=== PATIENT | female | born 1980 | race Caucasian/White ===

== ENCOUNTER 2018-11-09 10:55 | Observation (INO) ==
[2018-11-09] MEDS ORDERED: Nitroglycerin 0.4 MG TAB.SUBL SL PRN ×2 (11:01→15:27)
[2018-11-09] MEDS ORDERED: Aspirin 81 MG TAB.CHEW PO ONE (11:01)
[2018-11-09] MEDS ORDERED: 0.9 % Sodium Chloride 500 ML IVC ONE (11:01)
[2018-11-09] MEDS ORDERED: GI Cocktail 40 ML EACH PO ONE (11:01)
[2018-11-09] MEDS ORDERED: Ondansetron 4 MG/2 ML VIAL IVP ONE (11:01)
--- NOTE | 2018-11-09 11:03 | Emergency Department Note ---
Disposition Clinical Impression: Atypical chest pain Disposition: Admitted As Inpatient Referrals: NONE,PCP [Non-Partnered Physician] - Forms: ED Satisfaction Letter Chest Pain HPI - General Chief Complaint: ED Chest Pain Stated Complaint: Chest pain Time Seen by Provider: 11/09/18 11:01 Source: patient Mode of arrival: private vehicle Limitations: no limitations Vital Signs Reviewed: Yes Nursing Notes Reviewed: Yes - History of Present Illness HPI Narrative: Patient relates she has had some mid epigastric and low chest pain since about 9 PM last night. She states this has made it difficult for her to sleep. The pain persisted today and she went to work. While work she had more discomfort and states she felt sweaty lectures could not pass out. This prompted her to come in for evaluation. She notes that she has pains like this occasionally but usually in the left chest and balance are epigastric in her right side. She cannot identify anything that makes it better or worse and relates it is an 8 on a scale of 1-10 rest. Pain is described as tight to sharp in character and will radiate towards the left shoulder. She denies radiation to the back, jaw or arms. She states that she just had slight nausea and slight shortness of breath. She denies cough, congestion, fevers or chills. She denies any change of activity, strain or lifting. She denies any lower extremity swelling, immobilization or injury. She is followed by cardiology at [facility] with the last visit being a year ago. She states she has not had any testing through cardiology at [place]. She did have a previous CT coronary arteriogram performed a year ago in [place] which was reported to her as being normal. She denies any personal history of PE or DVT. She denies previous known heart disease or dysrhythmia. She is a smoker. She does not have history of hypertension, cholesterol issues, diabetes, morbid obesity or primary family history of heart disease. She states she has a grandmother who had heart disease. She does note some anxiety. With the epigastric discomfort she denies routine use of her nonsteroidals or alcohol use. She is noted to be on ibu profen 800 mg tablets as needed. Pt complaint: chest pain Onset (ago): hour(s) (14) Duration: constant, gradually worsening Onset: during rest Pain Location: substernal, epigastric Severity: moderate Severity scale (1-10): 8 Quality: tightness, sharp Pain Radiation: LUE (Shoulder) Improves with: nothing Worsens with: nothing Associated symptoms: Reports: nausea, diaphoresis, dyspnea. Denies: vomiting, syncope (Near syncope), palpitations, fever, cough, leg swelling Treatments prior to arrival chest pain: none - Related Data Home Medications Medication Instructions Recorded Confirmed clonazePAM [Clonazepam] 0.5 - 1 mg PO DAILY PRN 02/11/18 11/09/18 Benzoyl Peroxide 142 gm TP HS 09/30/18 11/09/18 Ibuprofen [Ibu] 800 mg PO TID PRN 09/30/18 11/09/18 Allergies Allergy/AdvReac Type Severity Reaction Status Date / Time prednisone Allergy See Verified 02/11/18 20:13 Comments All systems ED: reviewed and negative except as stated. Chest Pain PMH - Past Medical History Medical history: Reports: arthritis, fibromyalgia, migraine, renal disease. 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 INSPECTION history: Reports: endometriosis, ectopic , bilateral tubal ligation - Social History Smoking Status: Current every day smoker Alcohol use: Reports: none Drug use: Reports: marijuana (weekly) Physical Exam - General Limitations: no limitations General appearance: alert, in no apparent distress, anxious - Head Head exam: atraumatic, normocephalic, normal inspection - Eye Eye exam: Present: normal appearance, PERRL, EOMI - ENT ENT exam: normal exam, normal oropharynx, mucous membranes moist - Neck Neck exam: Present: normal inspection, full ROM, trachea midline - Chest Chest inspection: Present: normal inspection, symmetric chest wall rise. Absent: tenderness - Respiratory Respiratory exam: Present: normal lung sounds bilaterally. Absent: respiratory distress, wheezes, prolonged expiratory phase - Cardiovascular Cardiovascular exam: Present: regular rate, normal rhythm, normal heart sounds. Absent: tachycardia - Abdominal Exam Abdominal exam: Present: soft, normal bowel sounds. Absent: distention, guarding, rebound, rigidity Abdominal tenderness: Present: epigastrium, mild - Extremities Exam Extremities exam: Present: normal inspection, full ROM, normal capillary refill. Absent: tenderness, pedal edema, calf tenderness - Expanded Lower Extremity Exam Neurovascular/Tendon exam: Present: normal capillary refill. Absent: motor deficit, sensory deficit, tendon deficit Gait: observed and normal - Back Exam Back exam: Present: normal inspection, full ROM. Absent: tenderness - Neurological Exam Neurological exam: Present: alert, oriented X3 - Psychiatric Psychiatric exam: Present: normal affect, anxious - Skin Skin exam: Present: warm, dry, intact, normal color. Absent: diaphoresis, pallor Course Course Narrative: With return of laboratory testing, the patient does have a slightly elevated d- dimer. CT PE study has been ordered. 1225: My initial review of the CT PE studies that is negative. She has had significant relief with nitroglycerin and nitroglycerin paste has been applied prior to the CT PE study. Upon return of radiology reading, I will discuss care with Dr. Youngblood with regard to serial troponins at this facility for transfer to [facility]. 1251: Care has been discussed with Dr. Youngblood. He recommended consultation with [facility] cardiology to see if they would be okay with the patient staying here. 1323: I have spoken to Dr. Yunior Morales of cardiology. He relates that he is agreeable to the patient staying at this facility to trend troponins. This is been relayed back to Dr. Youngblood who is given verbal orders for the patient's observation. Vital Signs O2 Sat by Pulse Oximetry 97 11/09/18 10:56 Temperature 98.2 F 11/09/18 10:57 Pulse Rate 74 11/09/18 13:00 Respiratory Rate 18 11/09/18 13:00 Blood Pressure 109/83 11/09/18 13:00 O2 Sat by Pulse Oximetry 99 11/09/18 13:00 Oxygen Delivery Oxygen Delivery Nasal Cannula Chest Pain - Differential Diagnosis Likely: atypical chest pain, costalchondritis, chest pain - Medical Records Medical records reviewed: Yes I reviewed the patient's medical records. Echocardiogram Name: Nevaeh Mathur Date of Study: 07/17/2017 Indications: Chest pain History History of Smoking Years 18 Packs 1 EV/EV echocardiogram Impressions: LVEF 60%. Normal LV chamber size, wall thickness and function. Normal left ventricular diastolic function. Normal right ventricular structure and function. No evidence of pulmonary hypertension. No significant valvular dysfunction. Left Ventricular Wall Motion: Rest Echo Findings All wall segments showed normal motion. - Lab Data Lab results reviewed: Yes I reviewed the patient's lab results. Result diagrams: 11/09/18 11:13 11/09/18 11:13 Lab Results 11/09/18 11/09/18 11/09/18 Range/Units 11:13 11:13 11:13 WBC 11.9 H (4.3-11.1) K/mcL RBC 4.67 (3.82-4.97) M/mcL Hgb 13.4 (11.5-15.4) g/dL Hct 40.5 (35.3-44.9) % MCV 86.7 (83.0-100.0) fL MCH 28.7 (28.0-33.3) pg MCHC 33.1 (31.6-35.5) g/dL RDW 13.6 (11.5-14.5) % Plt Count 285 (140-400) K/mcL MPV 10.2 (9.4-12.4) fL Immature Gran % 0.5 (0-4) % Seg Neutrophils % 70.3 % Lymphocytes % 22.6 % Monocytes % 5.6 % Eosinophils % 0.7 % Basophils % 0.3 % Neutrophils # 8.4 (1.6-8.9) K/mcL Lymphocytes # 2.7 (0.6-4.6) K/mcL Monocytes # 0.7 (0.0-1.3) K/mcL Eosinophils # 0.1 (0.0-0.6) K/mcL Basophils # 0.0 (0.0-0.2) K/mcL PT 10.4 (9.4-12.1) Seconds INR 0.9 APTT 33.6 (26.0-36.0) Seconds D-Dimer 531 H (0-500) ng/mLFEU Sodium 136 (136-145) mEq/L Potassium 3.8 (3.5-5.1) mEq/L Chloride 105 (98-107) mEq/L Carbon Dioxide 25 (23-29) mEq/L BUN 10 (6-20) mg/dL Creatinine 0.72 (0.60-1.20) mg/dL Est GFR ( Amer) > 60 (> 60) Est GFR (Non-Af Amer) > 60 (> 60) BUN/Creatinine Ratio 14 (6-26) Glucose 96 (70-105) mg/dL Calculated Osmolality 281 (280-300) Calcium 9.3 (8.6-10.3) mg/dL Troponin I < 0.03 (< 0.04) ng/mL - Radiology Data Radiology results reviewed: Yes I reviewed the patient's radiology results. Single view chest x-ray is performed. This does not demonstrate evidence for infiltrate, effusion, pneumothorax, foreign body or heart failure. The cardiac silhouette is normal. I do not see abnormality to the osseous structures of the chest. This is on my interpretation. Impressions Chest X-Ray 11/09/18 11:01 IMPRESSION: No acute cardiopulmonary process identified. D/ / Remi Ulloa MD / Remi Ulloa MD Interpreting Provider: Remi Ulloa MD Chest CTA 11/09/18 11:48 IMPRESSION: 1. No pulmonary embolism. 2. The lungs are clear with no acute finding in the chest. 3. 8 mm left thyroid nodule noted incidentally. No follow-up imaging is recommended. RECOMMENDATIONS: Subcentimeter incidental thyroid nodule. No follow-up imaging is recommended. Reference: J Am Tiffanie Radiol. 2014;12(2): 143-50 D/ / Juan Do MD / Juan Do MD Interpreting Provider: Juan Do MD - EKG Data EKG attestation: Yes I reviewed and interpreted this EKG. EKG shows normal: sinus rhythm, axis, intervals, QRS complexes, ST-T waves Rate: normal Interpretation: no acute changes, normal EKG Heart Score - Score History: Moderately Suspicious EKG: Normal Age: Less than 45 Risk Factors: 1-2 risk factors Troponin: Less than normal limit HEART Score Total: 2
[2018-11-09 11:20] LABS: Basophils % 0.3 %; Eosinophils # 0.1 K/mcL (0.0-0.6); Eosinophils % 0.7 %; Hematocrit 40.5 % (35.3-44.9); Hemoglobin 13.4 g/dL (11.5-15.4); Immature Granulocytes % 0.5 % (0-4); Lymphocytes # 2.7 K/mcL (0.6-4.6); Lymphocytes % 22.6 %; Mean Corpuscular HGB Conc 33.1 g/dL (31.6-35.5); Mean Corpuscular Hemoglobin 28.7 pg (28.0-33.3); Mean Corpuscular Volume 86.7 fL (83.0-100.0); Mean Platelet Volume 10.2 fL (9.4-12.4); Monocytes # 0.7 K/mcL (0.0-1.3); Monocytes % 5.6 %; Neutrophils # 8.4 K/mcL (1.6-8.9); Platelet Count 285 K/mcL (140-400); Red Blood Count 4.67 M/mcL (3.82-4.97); Red Cell Distribution Width 13.6 % (11.5-14.5); Segmented Neutrophils % 70.3 %
[2018-11-09 11:29] LABS: INR 0.9; Prothrombin Time 10.4 Seconds (9.4-12.1)
[2018-11-09 11:32] LABS: Activated Partial Thrombo Time 33.6 Seconds (26.0-36.0)
[2018-11-09 11:39] LABS: BUN/Creatinine Ratio 14 (6-26); Blood Urea Nitrogen 10 mg/dL (6-20); Calcium 9.3 mg/dL (8.6-10.3); Carbon Dioxide 25 mEq/L (23-29); Chloride 105 mEq/L (98-107); Glucose 96 mg/dL (70-105); Osmolality,Calculated 281 (280-300); Potassium 3.8 mEq/L (3.5-5.1); Sodium 136 mEq/L (136-145); eGFR For Non-African Americans > 60 (> 60)
[2018-11-09 11:40] LABS: Troponin I < 0.03 ng/mL (< 0.04)
[2018-11-09] MEDS ORDERED: Isovue-370 500 ML BOTTLE IVP ONE ×2 (11:48→15:27)
[2018-11-09] MEDS ORDERED: Acetaminophen 325 MG TABLET PO ONE (11:50)
[2018-11-09] MEDS ORDERED: Nitroglycerin 1 INCH/GM PACKET TP ONE (11:50)
[2018-11-09] MEDS ORDERED: Mag Hydrox/Al Hydrox/Simeth 30 ML UDC PO PRN (15:27)
[2018-11-09] MEDS ORDERED: MOM Conc 10 ML UD.LIQ PO PRN (15:27)
[2018-11-09] MEDS ORDERED: Naloxone 0.4 MG/ML INJ IVP PRN (15:27)
[2018-11-09] MEDS: 0.9 % Sodium Chloride 1,000 ML IVC SCH (17:08)
[2018-11-09] MEDS ORDERED: Acetaminophen 325 MG TABLET PO PRN (17:25)
[2018-11-09] MEDS: clonazePAM 0.5 MG TABLET PO PRN (18:32)
[2018-11-10] MEDS: Ondansetron 4 MG/2 ML VIAL IVP PRN ×2 (00:30→08:32)
[2018-11-10] MEDS: 0.9 % Sodium Chloride 1,000 ML IVC SCH (00:30)
[2018-11-10] MEDS: clonazePAM 0.5 MG TABLET PO PRN (04:21)
[2018-11-10] MEDS ORDERED: Nicotine 21 MG PATCH.TD24 TD SCH (09:00)
--- NOTE | 2018-11-10 10:23 | Internal Med History&Physical ---
Date of Encounter: 11/10/18 Time of Encounter: 09:50 Assessment and Plan (1) Chest pain Current visit: Yes Status: Acute Doubt myocardial ischemia from history and physical. Suspect chest wall origin. Repeat cardiac enzymes were ordered through emergency room. Qualifiers: Chest pain type: precordial pain Qualified Code(s): R07.2 - Precordial pain Internal Medicine - H&P: HPI Chief complaint: Chest discomfort Admitted From: Emergency Dept Plans for Post Hospital Care: Home History of present illness: Ms. Mathur is a 38 year old female who came to emergency room complaining of chest discomfort described is a sharp stabbing pain onset approximately 9 PM the evening of November 08 while at leisure. She did not sleep well during the night. She did not take medication to relieve the pain. While at work the following morning she developed worsening chest discomfort with nausea dyspnea and dizziness. She called her seeing eye dog trainer who recommended she come to emergency room. She was found to have elevated d-dimer in emergency room. Chest CTA showed no PE. She was admitted to [facility] floor for ongoing care needs. She reports multiple previous but less severe similar pains over the past few days. Pains have been present for over a year. CT coronary angiogram was pe rformed 2017 in [place] without abnormality per her report. She states she feels much improved now and stable for discharge home. Cardiovascular history is negative for hypertension MT heart failure angina DVT or pulmonary embolus. Past Med Surg Social Fam HX - Past Medical History Medical history: arthritis, fibromyalgia, migraine, renal disease Additional medical history: STATES HEART SKIPS AND CAN BE RAPID BUT DUE TO ANXIETY, Psychiatric history: anxiety - Past Surgical History Surgical History: , cholecystectomy, other Additional surgical history: TUBAL, TWO LAPROSCOPIC SURGERYIES, ECTOPIC PREGNA NCY, AND ENDOMETRIOSIS, LEFT KNEE SCOPE X3, tubal pregancy, 2 nasal sx - Social History Smoking Status: Current every day smoker Smokeless Tobacco Status: No Alcohol use: none Drug use: marijuana - Family History Mother History Unknown: Yes Adopted: No Family Member Ethnicity: Non- Living Status: Still Living Hx Family Genitourinary Disorders: Yes (High blood pressure) Hx Family Autoimmune Disorders: Yes (FIBROMYALGIA) Father Living Status: Still Living Hx Family Cardiac Disorders: Yes (HTN) Hx Family Endocrine Disorder: Yes (DM) Internal Medicine - H&P: Meds clonazePAM [Clonazepam] 0.5 - 1 mg PO DAILY PRN 02/11/18 [History] Benzoyl Peroxide 142 gm TP HS 09/30/18 [History] Ibuprofen [Ibu] 800 mg PO TID PRN 09/30/18 [History] Allergy/AdvReac Type Severity Reaction Status Date / Time prednisone Allergy See Verified 02/11/18 20:13 Comments All Systems PM: A 10-system review of systems was performed and is negative for pertinent findings except as documented above in the HPI. Review of systems: Gen.: She states her weight has been stable for several months Cardiovascular: As per history of present illness Respiratory: She smoked since age 14 up to one pack per day. She denies chronic lung disease. She has not been tested for sleep apnea but states she does not sleep well GI: She has had cholecystectomy. She denies disorders of her liver or exocrine pancreas. : She states she was hospitalized approximately 2016 with "inflamed kidneys". She has had no recurrence. She has had a tubal and exploratory laparoscopy for endometriosis. Neurologic: She had multiple syncopal episodes in the past while living in [place]. She has had none for several years. Etiology was not determined. She denies large distribution strokes or seizures. Endocrine: She denies diabetes thyroid disease or hyperlipidemia Hematology/oncology: She has had anemia in the past which has now resolved. She denies internal malignancies other blood disorders Psychiatric: She has anxiety but denies depression or other mental health diagnoses [place] skeletal: She has had 3 knee surgeries. She has fibromyalgia and DJD. She denies gout or other bone joint or muscle disorders. - Constitutional Vitals: Temp Pulse Resp BP Pulse Ox 98.1 F 67 15 128/71 95 11/10/18 06:18 11/10/18 06:18 11/10/18 06:18 11/10/18 06:18 11/10/18 06:18 Exam: Gen.: She is a well-developed well-nourished female resting comfortably in bed who appears in no acute distress HEENT: Head is atraumatic and normocephalic. Eyes: EOMI. There is no scleral icterus. Mouth: Mucosa is moist. Neck: Supple and nontender. There is no thyromegaly or adenopathy noted. Heart: Regular without murmurs gallops or ectopics Chest: She has tenderness in her right costosternal joints stating "that is kind of like the pain" on compression. Abdomen: Soft and nontender. No masses or guarding are noted. Extremities: There is no cyanosis edema or clubbing noted. Dorsalis pedis and posterior tibial pulses are 1-2 over 2 bilaterally. Neurologic: Mental status: She is talkative and a good historian. Cranial nerves: Smile is symmetric. Forehead wrinkles bilaterally. Tongue protrudes midline. EOMI. Motor: There is no pronator drift. Cerebellar: Finger to nose is intact bilaterally. Skin: Warm and dry Internal Med - H&P Results - Labs CBC & Chem 7: 11/09/18 11:13 11/09/18 11:13 Labs: Short CBC 11/09/18 Range/Units 11:13 WBC 11.9 H (4.3-11.1) K/mcL Hgb 13.4 (11.5-15.4) g/dL Hct 40.5 (35.3-44.9) % Plt Count 285 (140-400) K/mcL Neutrophils # 8.4 (1.6-8.9) K/mcL BMP 11/09/18 11:13 Sodium 136 Potassium 3.8 Chloride 105 Carbon Dioxide 25 BUN 10 Creatinine 0.72 Glucose 96 Calcium 9.3 Cardiac Enzymes 11/09/18 11/09/18 11/09/18 Range/Units 11:13 15:39 21:39 Troponin I < 0.03 < 0.03 < 0.03 (< 0.04) ng/mL 11/10/18 Range/Units 03:40 Troponin I < 0.03 (< 0.04) ng/mL - Impressions ITS Impressions Chest X-Ray 11/09/18 11:01 IMPRESSION: No acute cardiopulmonary process identified. D/ / Remi Ulloa MD / Remi Ulloa MD Interpreting Provider: Remi Ulloa MD Chest CTA 11/09/18 11:48 IMPRESSION: 1. No pulmonary embolism. 2. The lungs are clear with no acute finding in the chest. 3. 8 mm left thyroid nodule noted incidentally. No follow-up imaging is recommended. RECOMMENDATIONS: Subcentimeter incidental thyroid nodule. No follow-up imaging is recommended. Reference: J Am Tiffanie Radiol. 2015 Jul;12(2): 143-50 D/ / Juan Do MD / Juan Do MD Interpreting Provider: Juan Do MD
--- NOTE | 2018-11-10 10:31 | Discharge Summary ---
Date of Encounter: 11/10/18 Time of Encounter: 09:50 - Discharge Diagnosis (1) Chest pain Priority: Primary Status: Acute Qualifiers: Chest pain type: precordial pain Qualified Code(s): R07.2 - Precordial pain Hospital course: Ms. Mathur is a 38 year old female who came to emergency room complaining of chest discomfort described is a sharp stabbing pain onset approximately 9 PM the evening of November 08 while at leisure. She did not sleep well during the night. She did not take medication to relieve the pain. While at work the following morning she developed worsening chest discomfort with nausea dyspnea and dizziness. 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 She was found to have elevated d-dimer in emergency room. Chest CTA showed no PE. She was admitted to [facility] for ongoing care needs. Initial orders were written by the emergency room physician. I saw her on November 10 and performed a history physical and discharge. When I saw her I felt the pain was likely chest wall origin. Repeat cardiac enzymes showed no evidence of myocardial damage. She felt stable for discharge home which I felt was reasonable. She will follow with her PCP within 1 week. I encouraged her become a nonsmoker. She can use Ibuprofen for chest wall pain. - Time Spent with Patient Total time spent providing and/or coordinating discharge services: - Discharge Medications Prescriptions: Continued clonazePAM [Clonazepam] 0.5 - 1 mg PO DAILY PRN PRN Reason: Anxiety Ibuprofen [Ibu] 800 mg PO TID PRN PRN Reason: Pain Benzoyl Peroxide 142 gm TP HS Home Medications: clonazePAM [Clonazepam] 0.5 - 1 mg PO DAILY PRN 02/11/18 [History] Benzoyl Peroxide 142 gm TP HS 09/30/18 [History] Ibuprofen [Ibu] 800 mg PO TID PRN 09/30/18 [History] Allergies/Adverse Reactions: Allergy/AdvReac Type Severity Reaction Status Date / Time prednisone Allergy See Verified 02/11/18 20:13 Comments Date of admission: 11/09/18 13:45 Primary care physician: Jannet Erazo CNP - Constitutional Vitals: Temp Pulse Resp BP Pulse Ox 98.1 F 67 15 128/71 95 11/10/18 06:18 11/10/18 06:18 11/10/18 06:18 11/10/18 06:18 11/10/18 06:18 - Patient Status Disposition: Home, Self-Care - Discharge Instructions Follow Up With: Jannet Erazo CNP [Primary Care Provider] - 1 week - Diet and Activity Activity: resume usual activities as tolerated Diet: advance to your usual diet
[2018-11-10 10:45] VITALS: BP 133/77
--- NOTE | 2018-11-10 17:44 | Electrocardiograph Report ---
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
== END 2018-11-10 11:53 | disposition home or self-care (01) ==
LOC: INPPIK 10:55 → EMEROOPIK 10:55 → INPPIK 14:45
PROVIDERS: ADMIT Internal Medicine; ATTEND Internal Medicine